=== PATIENT | female | born 1985 | race Caucasian/White ===

== ENCOUNTER → 2016-06-22 | Outpatient (REF) | payer MEDICARE, MEDICAID ==
[2016-06-28 14:08] LABS: Cannabidiol Negative (.)
== END | disposition home or self-care (01) ==
LOC: M LABDRAW1 11:35
PROVIDERS: ATTEND Psychiatry & Neurology Psychiatry
DX: F12.10 Cannabis abuse, uncomplicated (principal)

== ENCOUNTER 2016-07-03 15:30 | Outpatient (RCR) | payer MEDICARE, MEDICAID | END 2016-07-14 | LOC: M OUTALCOH 15:30 | PROVIDERS: ATTEND Psychiatry & Neurology Psychiatry | DX: F12.10 Cannabis abuse, uncomplicated (principal); F17.200 Nicotine dependence, unspecified, uncomplicated ==

== ENCOUNTER → 2017-02-25 | Outpatient (REF) | payer MEDICARE, MEDICAID | LOC: M LAB REF 11:48 | PROVIDERS: ATTEND Internal Medicine Endocrinology, Diabetes & Metabolism | DX: D34 Benign neoplasm of thyroid gland (principal); E04.2 Nontoxic multinodular goiter ==

== ENCOUNTER 2017-09-26 14:02 | Emergency (ER) | payer MEDICARE, MEDICAID ==
[2017-09-26 14:41] LABS: BASO % 0.3 % (0.0-1.0); EOS % 0.3 % (0.0-3.0); HEMOGLOBIN 13.1 g/dl (12.0-15.5); IMMATURE GRANULOCYTE % 0.3 % (0-3.0); LYMPH # 2.3 10^3/uL (1.5-4.5); MEAN CORPUSCULAR HEMOGLOBIN 30.5 pg (27.0-33.0); MEAN CORPUSCULAR HGB CONC 34.5 g/dl (32.0-36.5); MEAN CORPUSCULAR VOLUME 88.4 fl (80.0-96.0); MONO % 7.9 % (0.0-5.0); NEUTROPHILS # 8.6 10^3/uL (1.8-7.7); NEUTROPHILS % 72.2 % (36.0-66.0); PLATELET COUNT, AUTOMATED 278 10^3/uL (150-450); RED CELL DISTRIBUTION WIDTH 12.9 % (11.5-14.5)
[2017-09-26 14:47] LABS: KETONE, URINE AUTO RFX NEGATIVE (NEGATIVE); MUCUS, URINE RFX MODERATE (NEGATIVE); NITRITE, URINE AUTO RFX NEGATIVE (NEGATIVE); RBC, URINE AUTO RFX 4 /HPF (0-3); SPECIFIC GRAVITY UR AUTO RFX 1.028 (1.002-1.035); SQUAM EPITHELIAL CELL UR AURFX 2 /HPF (0-6)
[2017-09-26 14:48] LABS: LEUKOCYTE ESTERASE UR AUTO RFX 3+ (NEGATIVE); WBC, URINE AUTO RFX 45 /HPF (0-3)
[2017-09-26 15:06] LABS: HCG, SERUM QUANTITATIVE 43748 MIU/ML
== END 2017-09-26 16:11 | disposition home or self-care (01) ==
LOC: M ED 14:02
DX: O23.41 Unspecified infection of urinary tract in pregnancy, first trimester (principal); O99.331 Smoking (tobacco) complicating pregnancy, first trimester; F17.200 Nicotine dependence, unspecified, uncomplicated; Z3A.00 Weeks of gestation of pregnancy not specified
CPT/HCPCS: 76801

== ENCOUNTER → 2017-12-03 | Outpatient (REF) | payer MEDICARE, MEDICAID ==
[2017-12-03 18:22] LABS: CHLAMYDIA DNA AMPLIFICATION NEGATIVE (NEGATIVE); GC DNA AMPLIFICATION NEGATIVE (NEGATIVE)
[2017-12-03 18:23] LABS: HEMATOCRIT 36.6 % (36.0-47.0); HEMOGLOBIN 12.4 g/dl (12.0-15.5); MEAN CORPUSCULAR HEMOGLOBIN 30.8 pg (27.0-33.0); MEAN CORPUSCULAR HGB CONC 33.9 g/dl (32.0-36.5); MEAN CORPUSCULAR VOLUME 90.8 fl (80.0-96.0); PLATELET COUNT, AUTOMATED 261 10^3/uL (150-450); RED BLOOD COUNT 4.03 10^6/uL (4.00-5.40); RED CELL DISTRIBUTION WIDTH 13.2 % (11.5-14.5)
[2017-12-03 20:24] LABS: FREE T4 1.03 NG/DL (0.76-1.46)
[2017-12-06 10:27] LABS: HEPATITIS B SURFACE ANTIGEN NEGATIVE (NEGATIVE)
[2017-12-06 10:48] LABS: HEPATITIS C VIRUS ABY INDEX 0.1 INDEX (<0.8)
[2017-12-06 10:48] LABS: HEPATITIS B CORE ANTIBODY IGM NEGATIVE (NEGATIVE)
[2017-12-06 10:50] LABS: HIV 1&2 SCREEN CENTAUR NEGATIVE (NEGATIVE)
[2017-12-06 10:51] LABS: HEPATITIS A ANTIBODY IGM NEGATIVE (NEGATIVE)
== END ==
LOC: M LAB REF 16:25
DX: A60.04 Herpesviral vulvovaginitis (principal); E03.8 Other specified hypothyroidism
CPT/HCPCS: 84443

== ENCOUNTER → 2017-12-20 | Outpatient (CLI) | payer MEDICARE, MEDICAID | LOC: M RAD 13:01 | DX: Z34.82 Encounter for supervision of other normal pregnancy, second trimester (principal) | CPT/HCPCS: 76811 ==

== ENCOUNTER → 2017-12-23 | Outpatient (CLI) | payer MEDICARE, MEDICAID ==
[2017-12-23 14:03] LABS: BASO % 0.2 % (0.0-1.0); EOS # 0.1 10^3/uL (0.0-0.50); EOS % 0.5 % (0.0-3.0); HEMATOCRIT 36.1 % (36.0-47.0); HEMOGLOBIN 12.3 g/dl (12.0-15.5); IMMATURE GRANULOCYTE % 0.5 % (0-3.0); LYMPH # 1.9 10^3/uL (1.5-4.5); LYMPH % 14.7 % (24.0-44.0); MEAN CORPUSCULAR HEMOGLOBIN 31.9 pg (27.0-33.0); MEAN CORPUSCULAR HGB CONC 34.1 g/dl (32.0-36.5); MEAN CORPUSCULAR VOLUME 93.8 fl (80.0-96.0); MONO # 0.8 10^3/uL (0.0-0.8); MONO % 6.2 % (0.0-5.0); NEUTROPHILS % 77.9 % (36.0-66.0); PLATELET COUNT, AUTOMATED 282 10^3/uL (150-450); RED BLOOD COUNT 3.85 10^6/uL (4.00-5.40); RED CELL DISTRIBUTION WIDTH 14.1 % (11.5-14.5); WHITE BLOOD COUNT 12.8 10^3/uL (4.0-10.0)
[2017-12-24 10:37] LABS: RUBELLA IgG QUALITATIVE IMMUNE (IMMUNE)
[2017-12-24 10:46] LABS: HBsAg Prenatal NEGATIVE (NEGATIVE)
[2017-12-24 11:07] LABS: HIV 1&2 SCREEN CENTAUR NEGATIVE (NEGATIVE)
[2017-12-24 11:07] LABS: HEPATITIS C VIRUS ABY INDEX 0.1 INDEX (<0.8)
[2017-12-24 12:42] LABS: FREE T4 1.02 NG/DL (0.76-1.46)
[2017-12-24 16:20] LABS: SSA SJOGRENS A <0.2 AI (0.0-0.9); SSB SJOGRENS B <0.2 AI (0.0-0.9)
== END ==
LOC: M SMT 09:41
DX: Z36.89 Encounter for other specified antenatal screening (principal); Z3A.00 Weeks of gestation of pregnancy not specified
CPT/HCPCS: 84443

== ENCOUNTER → 2017-12-28 | Outpatient (CLI) | payer MEDICARE, MEDICAID | LOC: M SMT 11:29 | DX: Z36.89 Encounter for other specified antenatal screening (principal) | CPT/HCPCS: 36415 ==

== ENCOUNTER → 2018-02-25 | Outpatient (CLI) | payer MEDICARE ==
[2018-02-25 10:44] LABS: GLUCOSE, FASTING 84 MG/DL (LESS THAN 95)
[2018-02-25 10:46] LABS: 1 HR GLUCOSE 197 MG/DL (LESS THAN 180)
[2018-02-25 11:27] LABS: 2 HR GLUCOSE 186 MG/DL (LESS THAN 155)
[2018-02-25 12:25] LABS: 3 HR GLUCOSE 138 MG/DL (LESS THAN 140)
== END ==
LOC: M LAB 08:00
DX: Z34.82 Encounter for supervision of other normal pregnancy, second trimester (principal)
CPT/HCPCS: 82951

== ENCOUNTER → 2018-03-28 | Outpatient (CLI) | payer MEDICARE, MEDICAID | LOC: M RAD 11:52 | DX: O24.419 Gestational diabetes mellitus in pregnancy, unspecified control (principal); Z3A.31 31 weeks gestation of pregnancy | CPT/HCPCS: 76816 ==

== ENCOUNTER → 2018-04-01 | Outpatient (REF) | payer MEDICARE, MEDICAID | LOC: M LAB REF 16:45 | DX: E03.8 Other specified hypothyroidism (principal) | CPT/HCPCS: 84443 ==

== ENCOUNTER 2018-04-11 11:09 | Outpatient (RCR) | payer MEDICARE, MEDICAID | END 2018-04-13 | LOC: M ST 11:09 | DX: R13.11 Dysphagia, oral phase (principal) | CPT/HCPCS: 92610 ==

== ENCOUNTER → 2018-04-19 | Outpatient (REF) | payer MEDICARE, MEDICAID | LOC: M LAB REF 13:15 | DX: Z34.83 Encounter for supervision of other normal pregnancy, third trimester (principal); Z36.89 Encounter for other specified antenatal screening | CPT/HCPCS: 87081 ==

== ENCOUNTER 2018-04-27 06:05 | Inpatient (IN) | payer MEDICARE, MEDICAID ==
[2018-04-27 06:30] LABS: BEDSIDE GLUCOSE 109 MG/DL (70-105)
[2018-04-27] MEDS ORDERED: miSOPROStol 50 MCG 1/2 TAB (S0191) PO (07:00)
[2018-04-27 07:03] LABS: HEMOGLOBIN 9.5 g/dl (12.0-15.5); MEAN CORPUSCULAR HEMOGLOBIN 29.1 pg (27.0-33.0); MEAN CORPUSCULAR HGB CONC 32.8 g/dl (32.0-36.5); MEAN CORPUSCULAR VOLUME 88.7 fl (80.0-96.0); PLATELET COUNT, AUTOMATED 241 10^3/uL (150-450); RED BLOOD COUNT 3.27 10^6/uL (4.00-5.40); RED CELL DISTRIBUTION WIDTH 13.1 % (11.5-14.5); WHITE BLOOD COUNT 13.3 10^3/uL (4.0-10.0)
[2018-04-27] MEDS ORDERED: OXYTOCIN 30 UNITS IN 0.9% NaCl 500ML IV BAG (J2590) As Ordered (09:16)
[2018-04-27 09:20] LABS: AMPHETAMINES URINE REFLEX NEGATIVE (NEGATIVE); BARBITURATES URINE REFLEX NEGATIVE (NEGATIVE); BENZODIAZEPINES URINE REFLEX NEGATIVE (NEGATIVE); CANNABINOIDS URINE REFLEX NEGATIVE (NEGATIVE); COCAINE METABOLITE URINE REFLE NEGATIVE (NEGATIVE); METHADONE URINE REFLEX NEGATIVE (NEGATIVE); OPIATES URINE REFLEX NEGATIVE (NEGATIVE); PHENCYCLIDINE URINE REFLEX NEGATIVE (NEGATIVE)
[2018-04-27] MEDS: LR 1,000 ML IV (10:07)
[2018-04-27] MEDS: OXYTOCIN DRIP 30 UNITS in APPROPRIATE DILUENT 1 EA IV (10:07)
[2018-04-27] MEDS ORDERED: INSULIN HUMAN REGULAR 100 UNITS in NS 99 ML IV (16:46)
[2018-04-27] MEDS ORDERED: D5W/0.9% SODIUM CHLORIDE 1,000 ML IV (16:46)
[2018-04-27] MEDS ORDERED: NS 1,000 ML IV (16:46)
[2018-04-27] MEDS ORDERED: INSULIN IV RATE CHANGE DOCUMENTATION ML/HR XX (17:00)
[2018-04-27 17:05] LABS: BEDSIDE GLUCOSE 79 MG/DL (70-105)
[2018-04-27 19:06] LABS: BEDSIDE GLUCOSE 88 MG/DL (70-105)
[2018-04-27] MEDS ORDERED: FENTANYL 2MCG/ML ROPIVACAINE 0.2% IN 0.9% NACL 200ML IVBAG As Ordered (19:10)
[2018-04-27] MEDS ORDERED: NALOXONE INJ 0.4 MG/1 ML VIAL (J2310) IV (20:00)
[2018-04-27] MEDS ORDERED: ONDANSETRON 4MG/2ML VIAL (J2405) IV (20:00)
[2018-04-27] MEDS ORDERED: EPIDURAL/PCA KEYS XX (20:00)
[2018-04-27] MEDS ORDERED: REFRIGERATOR IV KEYS XX (20:00)
[2018-04-27] MEDS ORDERED: diphenhydrAMINE INJ 50MG/ML VIAL (J1200) IV (20:00)
[2018-04-27] MEDS ORDERED: LACTATED RINGER'S 1000 ML IV (20:00)
[2018-04-27] MEDS ORDERED: FENTANYL/ROPIVACAINE/NACL BAG 200 ML EPIDURAL (20:00)
[2018-04-27] MEDS ORDERED: ePHEDrine SULFATE 25 MG/5 ML(5MG/ML) SYRINGE IV (20:00)
[2018-04-27] MEDS ORDERED: EPIDURAL COMMENT XX (20:00)
[2018-04-27 22:25] LABS: CORD GAS ABE A -8.9; CORD GAS O2 SAT A 22.6 %; CORD GAS PCO2 A 62.7 mmHg; CORD GAS PH A 7.143 UNITS; CORD GAS SBC A 15.8 MEQ/L; CORD GAS TCO2 A 22.9 MEQ/L
[2018-04-27 22:27] LABS: CORD GAS ABE V -5.2; CORD GAS HCO3 V 23.2 MEQ/L; CORD GAS O2 SAT V 37.2 %; CORD GAS PCO2 V 56.7 mmHg; CORD GAS PO2 V 18.5 mmHg; CORD GAS SBC V 18.9 MEQ/L
[2018-04-27] MEDS ORDERED: ANUSOL HC CREAM 30GM TOP (22:30)
[2018-04-27] MEDS ORDERED: MEASLES,MUMPS,RUBELLA VACCINE INJ (MMR-II) (90707) SC (22:30)
[2018-04-27] MEDS ORDERED: DIBUCAINE 1% OINTMENT 30GM TOP (22:30)
[2018-04-27] MEDS ORDERED: OXYTOCIN DRIP 30 UNITS in APPROPRIATE DILUENT 1 EA IV (22:30)
[2018-04-27] MEDS ORDERED: METHYLERGONOVINE MALEATE 0.2 MG TAB PO (22:30)
[2018-04-27] MEDS ORDERED: DOCUSATE SODIUM 100 MG CAP PO (22:30)
[2018-04-27] MEDS ORDERED: MOM 30ML SUSPENSION UDC PO (22:30)
[2018-04-27 23:00] LABS: BEDSIDE GLUCOSE 83 MG/DL (70-105)
[2018-04-28 00:17] LABS: BEDSIDE GLUCOSE 105 MG/DL (70-105)
[2018-04-28] MEDS: LR 1,000 ML IV ×2 (00:45→02:00)
[2018-04-28] MEDS: PROMETHAZINE INJ 25 MG/ML VIAL (J2550) IV (01:47)
[2018-04-28] MEDS: ACETAMINOPHEN 500 MG TAB PO ×3 (02:48→18:08)
[2018-04-28] MEDS: IBUPROFEN 800 MG TAB PO ×2 (02:48→16:49)
[2018-04-28] MEDS: PRENATAL VITAMINS CHEWABLE TABLET PO (09:35)
[2018-04-28 09:53] LABS: FETAL SCREEN PROF. 1 1
[2018-04-28] MEDS: RHOGAM 300 MCG (1500 IU) INJ (J2790) IM (10:47)
[2018-04-29] MEDS: IBUPROFEN 800 MG TAB PO ×2 (04:10→14:20)
[2018-04-29] MEDS: PRENATAL VITAMINS CHEWABLE TABLET PO (07:36)
== END 2018-04-29 16:30 | disposition home or self-care (01) | DRG 807 ==
LOC: M LDI 06:05 → M OBS 23:48
PROVIDERS: Advanced Practice Midwife
PROC: 10E0XZZ Delivery of Products of Conception, External Approach (ICD-10-PCS; principal; 2018-04-27)
PROC: 3E0P7GC Introduction of Other Therapeutic Substance into Female Reproductive, Via Natural or Artificial Opening (ICD-10-PCS; 2018-04-27)
DX: O24.425 Gestational diabetes mellitus in childbirth, controlled by oral hypoglycemic drugs (principal); Z37.0 Single live birth; E03.9 Hypothyroidism, unspecified; Z3A.37 37 weeks gestation of pregnancy; O99.284 Endocrine, nutritional and metabolic diseases complicating childbirth; L65.9 Nonscarring hair loss, unspecified; O99.72 Diseases of the skin and subcutaneous tissue complicating childbirth

== ENCOUNTER → 2018-06-10 | Outpatient (CLI) | payer MEDICARE, MEDICAID ==
[~2018-06-10] MED LIST: COLA100C5 PO; E-Z-PAQUE 96% w/w SUSP 176GM BTL As Ordered ONE; IBUP-1114 PO; LEVO25TA5 PO; MACR100C43 PO; MAPA500T2 PO; METF500T13 PO; PRENTAB9 PO; VALT500T PO; VARIBAR NECTAR 40% w/v 240ML SUSP BTL As Ordered ONE; VARIBAR PUDDING 40% w/v 230ML TUBE As Ordered ONE
--- NOTE | 2018-06-10 13:55 | REP ---
Clinical: Dysphasia. Technique: Real time fluoroscopic evaluation in conjunction with speech pathology. Findings: Examination demonstrates normal deglutition and peristalsis through the oropharynx and visualized upper esophagus. No evidence for aspiration or laryngeal penetration. Surrounding soft tissues and osseous structures are normal. Total fluoroscopic time 1.6 minutes . Impression: Normal modified barium swallow examination. Electronically Signed by Jesus Herring MD 06/10/2018 01:47 P
--- NOTE | 2018-06-10 14:08 | NUR ---
Pt seen this date for Modified Barium Swallow Study d/t c/o difficulty swallowing liquids and solids, inconsistently. Pt also reported intermittent globus sensation. Pt provided with thin liquids at cup side sip, cup side consecutive swallow and with consecutive straw drink. Flash/trace penetration was observed on the first trial. All subsequent thin liquid trials were adequate. Puree, mixed soft solid and cookie swallows were adequate. Recommend: Regular solids/thin liquids. D/T c/o intermittent globus sensation, MD please consider intervention for GERD. Pt educated on results of study and some GERD precautions. Addendum: 06/10/18 at 1408 by DANNY YOO CHAKA Amended: Links added.
== END ==
LOC: M RAD 13:13
PROVIDERS: ATTEND Family Medicine Addiction Medicine
DX: R13.11 Dysphagia, oral phase (principal)
CPT/HCPCS: 74230; 92611; G8996; G8997; G8998

== ENCOUNTER → 2018-07-08 | Outpatient (CLI) | payer MEDICARE, MEDICAID ==
[~2018-07-08] MED LIST changes: -E-Z-PAQUE 96% w/w SUSP 176GM BTL As Ordered ONE; -VARIBAR NECTAR 40% w/v 240ML SUSP BTL As Ordered ONE; -VARIBAR PUDDING 40% w/v 230ML TUBE As Ordered ONE
== END ==
LOC: M LAB 07:59
PROVIDERS: ATTEND Obstetrics & Gynecology
DX: Z86.32 Personal history of gestational diabetes (principal)

== ENCOUNTER → 2018-07-14 | Outpatient (CLI) | payer MEDICARE, MEDICAID ==
--- NOTE | 2018-07-14 09:40 | REP ---
Clinical: Pain . Technique: AP, lateral, bilateral oblique, and coned-down views. Findings: Alignment and lordosis is maintained. The vertebral bodies including transverse process and spinous processes are intact and normal. There is no evidence for acute fracture / compression injury or subluxation. No evidence for spondylolysis or spondylolisthesis. No significant degenerative change is noted. Impression: Normal lumbosacral spine radiograph series. If the patient remains symptomatic consider MRI for further investigation. Electronically Signed by Jesus Herring MD 07/14/2018 09:32 A
== END ==
LOC: M WUC 09:16
PROVIDERS: ATTEND Physician Assistant
DX: M54.5 Low back pain (principal)

== ENCOUNTER → 2018-07-22 | Outpatient (REF) | payer MEDICARE, MEDICAID | LOC: M LAB REF 16:13 | PROVIDERS: ATTEND Family Medicine Addiction Medicine | DX: E03.8 Other specified hypothyroidism (principal) ==

== ENCOUNTER → 2018-09-06 | Outpatient (REF) | payer MEDICARE, MEDICAID ==
[2018-09-08 14:21] LABS: HPV HYBRID CAPTURE II Negative (Negative)
== END ==
LOC: M LAB REF 14:38
PROVIDERS: ATTEND Obstetrics & Gynecology
DX: Z12.4 Encounter for screening for malignant neoplasm of cervix (principal)
CPT/HCPCS: 87624; G0123

== ENCOUNTER → 2018-10-07 | Outpatient (REF) | payer MEDICARE, MEDICAID | LOC: M LAB REF 12:38 | PROVIDERS: ATTEND Family Medicine Addiction Medicine | DX: E03.8 Other specified hypothyroidism (principal) ==

== ENCOUNTER → 2018-12-09 | Outpatient (REF) | payer MEDICARE, MEDICAID | LOC: M LAB REF 12:55 | PROVIDERS: ATTEND Nurse Practitioner Family | DX: E03.8 Other specified hypothyroidism (principal) | CPT/HCPCS: 84443; G0463 ==

== ENCOUNTER → 2019-01-05 | Outpatient (CLI) | payer MEDICARE, MEDICAID ==
--- NOTE | 2019-01-06 14:30 | REP ---
LUMBOSACRAL SPINE WITH BENDING VIEWS: Seven views of the lumbosacral spine are performed including lateral flexion and extension views. There is no compression fracture or malalignment. There is normal lumbar lordosis. There is no spondylolysis or spondylolisthesis. The disc spaces are well preserved. The posterior elements are intact. IMPRESSION: Negative lumbosacral spine series. Unreviewed
== END ==
LOC: M RAD 18:14
PROVIDERS: ATTEND Nurse Practitioner Family
DX: Z53.9 Procedure and treatment not carried out, unspecified reason (principal); M54.5 Low back pain

== ENCOUNTER → 2019-01-06 | Outpatient (CLI) | payer MEDICARE, MEDICAID ==
--- NOTE | 2019-01-06 14:12 | REP ---
REASON: Low back pain. COMPARISON: 07/14/2018 FINDINGS: Five views of the lumbosacral spine show no acute fracture, dislocation or subluxation. The intervertebral disc spaces are symmetric and well maintained. There is no spondylolisthesis. The pedicles are intact bilaterally and there is no destructive osseous lesions. There is no change from the prior exam. There is a T-shaped radiodensity seen in the pelvis consistent with an IUD. If the patient is experiencing persistent back pain, consider followup with MRI to assess for discopathy or marrow edema if clinically relevant. IMPRESSION: Unremarkable lumbosacral spine series. ADDENDUM: Seven views were obtained rather than 5. The additional views include lateral flexion and extension bending views. Those views show no evidence of instability. edited: 01/06/2019 1653 ndp Unreviewed
== END ==
LOC: M RAD 12:36
PROVIDERS: ATTEND Nurse Practitioner Family
DX: M54.5 Low back pain (principal)

== ENCOUNTER → 2019-05-05 | Outpatient (REF) | payer MEDICARE, MEDICAID ==
[2019-05-05 17:26] LABS: ALBUMIN 3.5 GM/DL (3.2-5.2); ALT/SGPT 16 U/L (12-78); BILIRUBIN,TOTAL 0.3 MG/DL (0.2-1.0); BLOOD UREA NITROGEN 11 MG/DL (7-18); CALCIUM LEVEL 8.9 MG/DL (8.5-10.1); CARBON DIOXIDE LEVEL 26 MEQ/L (21-32); CHLORIDE LEVEL 108 MEQ/L (98-107); CHOLESTEROL LEVEL 178 MG/DL (<200); CHOLESTEROL RISK RATIO 3.236 (<5); CREATININE FOR GFR 0.81 MG/DL (0.55-1.30); FREE T4 0.96 NG/DL (0.76-1.46); GLOMERULAR FILTRATION RATE > 60.0 (>60); GLUCOSE, FASTING 107 MG/DL (70-100); HDL CHOLESTEROL 55 MG/DL (>40); LDL CHOLESTEROL 105 MG/DL (<100); NON-HDL-C 123 MG/DL; POTASSIUM SERUM 4.1 MEQ/L (3.5-5.1); SODIUM LEVEL 140 MEQ/L (136-145); TOTAL PROTEIN 7.6 GM/DL (6.4-8.2); TRIGLYCERIDES LEVEL 90 MG/DL (<150)
[2019-05-05 17:29] LABS: TOTAL 25(OH) VITAMIN D 17.1 NG/ML (30.0-100.0)
[2019-05-05 17:32] LABS: HEMOGLOBIN A1c 6.1 %
[2019-05-05 17:33] LABS: BASO # 0.1 10^3/uL (0.0-0.2); BASO % 0.7 % (0.0-1.0); EOS # 0.2 10^3/uL (0.0-0.5); EOS % 1.8 % (0.0-3.0); HEMATOCRIT 40.6 % (36.0-47.0); HEMOGLOBIN 12.7 g/dl (12.0-15.5); LYMPH % 23.2 % (24.0-44.0); MEAN CORPUSCULAR HEMOGLOBIN 28.5 pg (27.0-33.0); MEAN CORPUSCULAR HGB CONC 31.3 g/dl (32.0-36.5); MEAN CORPUSCULAR VOLUME 91.2 fl (80.0-96.0); MONO % 11.4 % (0.0-5.0); NEUTROPHILS # 5.3 10^3/uL (1.5-8.5); NEUTROPHILS % 62.7 % (36.0-66.0); PLATELET COUNT, AUTOMATED 319 10^3/uL (150-450); RED BLOOD COUNT 4.45 10^6/uL (4.00-5.40); WHITE BLOOD COUNT 8.4 10^3/uL (4.0-10.0)
== END ==
LOC: M LAB REF 16:44
PROVIDERS: ATTEND Nurse Practitioner Family
DX: Z00.01 Encounter for general adult medical examination with abnormal findings (principal); Z79.899 Other long term (current) drug therapy

== ENCOUNTER → 2019-06-12 | Outpatient (CLI) | payer MEDICARE, MEDICAID | LOC: M LAB 13:09 | PROVIDERS: ATTEND Internal Medicine Cardiovascular Disease | DX: R00.1 Bradycardia, unspecified (principal); F32.89 Other specified depressive episodes | CPT/HCPCS: 36415; 84443; 90832; G0463 ==

== ENCOUNTER → 2019-08-05 | Outpatient (CLI) | payer MEDICARE, MEDICAID ==
[2019-08-05 18:54] LABS: BASO % 0.3 % (0.0-1.0); EOS # 0.1 10^3/uL (0.0-0.5); EOS % 1.2 % (0.0-3.0); HEMATOCRIT 38.4 % (36.0-47.0); HEMOGLOBIN 12.5 g/dl (12.0-15.5); LYMPH # 2.8 10^3/uL (1.5-5.0); LYMPH % 29.6 % (24.0-44.0); MEAN CORPUSCULAR HEMOGLOBIN 28.9 pg (27.0-33.0); MEAN CORPUSCULAR HGB CONC 32.6 g/dl (32.0-36.5); MEAN CORPUSCULAR VOLUME 88.9 fl (80.0-96.0); MONO # 0.9 10^3/uL (0.0-0.8); NEUTROPHILS # 5.7 10^3/uL (1.5-8.5); NEUTROPHILS % 59.6 % (36.0-66.0); PLATELET COUNT, AUTOMATED 291 10^3/uL (150-450); RED BLOOD COUNT 4.32 10^6/uL (4.00-5.40); WHITE BLOOD COUNT 9.5 10^3/uL (4.0-10.0)
[2019-08-05 19:15] LABS: HEMOGLOBIN A1c 6.5 %
[2019-08-05 19:33] LABS: ALBUMIN 3.7 GM/DL (3.2-5.2); ALT/SGPT 16 U/L (12-78); BILIRUBIN,TOTAL 0.2 MG/DL (0.2-1.0); BLOOD UREA NITROGEN 18 MG/DL (7-18); CALCIUM LEVEL 8.9 MG/DL (8.5-10.1); CARBON DIOXIDE LEVEL 28 MEQ/L (21-32); CHLORIDE LEVEL 106 MEQ/L (98-107); CHOLESTEROL LEVEL 170 MG/DL (<200); CHOLESTEROL RISK RATIO 4.047 (<5); CREATININE FOR GFR 0.97 MG/DL (0.55-1.30); FREE T4 0.99 NG/DL (0.76-1.46); GLOMERULAR FILTRATION RATE > 60.0 (>60); GLUCOSE, FASTING 113 MG/DL (70-100); HDL CHOLESTEROL 42 MG/DL (>40); LDL CHOLESTEROL 98 MG/DL (<100); NON-HDL-C 128 MG/DL; POTASSIUM SERUM 4.1 MEQ/L (3.5-5.1); SODIUM LEVEL 138 MEQ/L (136-145); TOTAL PROTEIN 7.4 GM/DL (6.4-8.2); TRIGLYCERIDES LEVEL 152 MG/DL (<150)
[2019-08-07 10:06] LABS: TOTAL 25(OH) VITAMIN D 21.8 NG/ML (30.0-100.0)
== END ==
LOC: M LAB 18:16
PROVIDERS: ATTEND Nurse Practitioner Family
DX: R00.1 Bradycardia, unspecified (principal); E55.9 Vitamin D deficiency, unspecified; R07.9 Chest pain, unspecified; R73.03 Prediabetes; E03.8 Other specified hypothyroidism

== ENCOUNTER → 2019-09-19 | Outpatient (REF) | payer MEDICARE, MEDICAID ==
[2019-09-19 12:50] LABS: FREE T4 1.11 NG/DL (0.76-1.46); THYROID STIMULATING HORMONE 3.39 uIU/ML (0.358-3.740); TOTAL 25(OH) VITAMIN D 27.8 NG/ML (30.0-100.0)
== END ==
LOC: M LAB REF 12:16
PROVIDERS: ATTEND Physician Assistant
DX: E55.9 Vitamin D deficiency, unspecified (principal); E03.8 Other specified hypothyroidism; Z79.899 Other long term (current) drug therapy

== ENCOUNTER → 2019-11-28 | Outpatient (REF) | payer MEDICARE, MEDICAID ==
[2019-11-28 13:39] LABS: BASO % 0.4 % (0.0-1.0); EOS # 0.1 10^3/uL (0.0-0.5); EOS % 0.7 % (0.0-3.0); HEMATOCRIT 42.8 % (36.0-47.0); HEMOGLOBIN 13.9 g/dl (12.0-15.5); LYMPH # 2.5 10^3/uL (1.5-5.0); LYMPH % 25.3 % (24.0-44.0); MEAN CORPUSCULAR HEMOGLOBIN 29.1 pg (27.0-33.0); MEAN CORPUSCULAR HGB CONC 32.5 g/dl (32.0-36.5); MEAN CORPUSCULAR VOLUME 89.7 fl (80.0-96.0); MONO # 0.8 10^3/uL (0.0-0.8); MONO % 7.8 % (0.0-5.0); NEUTROPHILS # 6.5 10^3/uL (1.5-8.5); NEUTROPHILS % 65.5 % (36.0-66.0); PLATELET COUNT, AUTOMATED 313 10^3/uL (150-450); RED BLOOD COUNT 4.77 10^6/uL (4.00-5.40); WHITE BLOOD COUNT 9.9 10^3/uL (4.0-10.0)
[2019-11-28 13:53] LABS: ALT/SGPT 19 U/L (12-78); BILIRUBIN,TOTAL 0.4 MG/DL (0.2-1.0); BLOOD UREA NITROGEN 15 MG/DL (7-18); CALCIUM LEVEL 8.9 MG/DL (8.5-10.1); CARBON DIOXIDE LEVEL 26 MEQ/L (21-32); CHLORIDE LEVEL 105 MEQ/L (98-107); CHOLESTEROL LEVEL 205 MG/DL (<200); CHOLESTEROL RISK RATIO 4.456 (<5); CREATININE FOR GFR 0.74 MG/DL (0.55-1.30); FREE T4 1.13 NG/DL (0.76-1.46); GLOMERULAR FILTRATION RATE > 60.0 (>60); GLUCOSE, FASTING 96 MG/DL (70-100); HDL CHOLESTEROL 46 MG/DL (>40); LDL CHOLESTEROL 125 MG/DL (<100); NON-HDL-C 159 MG/DL; POTASSIUM SERUM 4.2 MEQ/L (3.5-5.1); SODIUM LEVEL 137 MEQ/L (136-145); TOTAL 25(OH) VITAMIN D 15.9 NG/ML (30.0-100.0); TOTAL PROTEIN 8.4 GM/DL (6.4-8.2); TRIGLYCERIDES LEVEL 169 MG/DL (<150)
[2019-11-28 14:45] LABS: HEMOGLOBIN A1c 6.2 %
== END ==
LOC: M LAB REF 12:01
PROVIDERS: ATTEND Nurse Practitioner Family
DX: E03.9 Hypothyroidism, unspecified (principal); E55.9 Vitamin D deficiency, unspecified; E11.9 Type 2 diabetes mellitus without complications; M54.5 Low back pain

== ENCOUNTER → 2020-02-14 | Outpatient (REF) | payer OTHER, MEDICAID, MEDICARE ==
[~2020-02-14] MED LIST changes: +CELE1CAP7 PO; +CEPH500C PO; +DOK1CAP7 PO; +DULO1CAP6 PO; +EUTH137T PO; +NON-325T5 PO; +NORT10CA2 PO; +cholecalciferol PO
[2020-02-14 15:11] LABS: THYROID STIMULATING HORMONE 4.05 uIU/ML (0.358-3.740)
== END ==
LOC: M LAB REF 09:10
PROVIDERS: ATTEND Nurse Practitioner Family
DX: E03.9 Hypothyroidism, unspecified (principal)

== ENCOUNTER 2020-04-12 11:34 | Emergency (ER) | payer MEDICARE, MEDICAID ==
[~2020-04-12] VITALS: Ht 162.6 cm; Wt 103.1 kg
[~2020-04-12 11:34] MED LIST changes: -CELE1CAP7 PO; -CEPH500C PO; -DOK1CAP7 PO; -DULO1CAP6 PO; -EUTH137T PO; -NON-325T5 PO; -NORT10CA2 PO; -cholecalciferol PO
[2020-04-12 11:35] VITALS: BP 109/73
[2020-04-12] MEDS ORDERED: DOK1CAP7 PO (15:31)
[2020-04-12] MEDS ORDERED: NON-325T5 PO (15:31)
[2020-04-12] MEDS ORDERED: NORT10CA2 PO (15:31)
[2020-04-12] MEDS ORDERED: DULO1CAP6 PO (15:31)
[2020-04-12] MEDS ORDERED: CEPH500C PO (15:31)
[2020-04-12] MEDS ORDERED: cholecalciferol PO (15:31)
[2020-04-12] MEDS ORDERED: EUTH137T PO (15:31)
[2020-04-12] MEDS ORDERED: CELE1CAP7 PO ×2 (15:31)
== END 2020-04-12 12:25 | disposition left against medical advice (07) ==
LOC: M ED 11:34
DX: Z53.21 Procedure and treatment not carried out due to patient leaving prior to being seen by health care provider (principal)

== ENCOUNTER 2020-04-12 15:17 | Emergency (ER) | payer MEDICARE, MEDICAID ==
[~2020-04-12] VITALS: Ht 162.6 cm; Wt 103.6 kg
[2020-04-12] MEDS ORDERED: cholecalciferol PO (15:31)
[2020-04-12] MEDS ORDERED: DULO1CAP6 PO (15:31)
[2020-04-12] MEDS ORDERED: EUTH137T PO (15:31)
[2020-04-12] MEDS ORDERED: NON-325T5 PO (15:31)
[2020-04-12] MEDS ORDERED: CELE1CAP7 PO ×2 (15:31)
[2020-04-12] MEDS ORDERED: CEPH500C PO (15:31)
[2020-04-12] MEDS ORDERED: NORT10CA2 PO (15:31)
[2020-04-12] MEDS ORDERED: DOK1CAP7 PO (15:31)
[2020-04-12] MEDS ORDERED: LIDOCAINE 2% MDV 20ML VIAL SC ONE (16:00)
[2020-04-12 17:36] VITALS: BP 129/64
== END 2020-04-12 17:38 | disposition home or self-care (01) ==
LOC: M ED 15:17 → EEVIPCON 15:17 → M ED 17:38
DX: L02.511 Cutaneous abscess of right hand (principal); B00.89 Other herpesviral infection; F41.9 Anxiety disorder, unspecified; E03.9 Hypothyroidism, unspecified; Z79.899 Other long term (current) drug therapy

== ENCOUNTER → 2020-05-01 | Outpatient (REF) | payer MEDICARE, MEDICAID ==
[~2020-05-01] MED LIST changes: +CELE1CAP7 PO; +CEPH500C PO; +DOK1CAP7 PO; +DULO1CAP6 PO; +EUTH137T PO; +NON-325T5 PO; +NORT10CA2 PO; +cholecalciferol PO
[2020-05-01 13:16] LABS: BASO % 0.5 % (0.0-1.0); EOS # 0.1 10^3/uL (0.0-0.5); EOS % 1.6 % (0.0-3.0); HEMATOCRIT 38.7 % (36.0-47.0); HEMOGLOBIN 12.3 g/dl (12.0-15.5); LYMPH # 2.2 10^3/uL (1.5-5.0); LYMPH % 28.3 % (24.0-44.0); MEAN CORPUSCULAR HGB CONC 31.8 g/dl (32.0-36.5); MEAN CORPUSCULAR VOLUME 91.3 fl (80.0-96.0); MONO # 0.7 10^3/uL (0.0-0.8); MONO % 9.5 % (0.0-5.0); NEUTROPHILS # 4.6 10^3/uL (1.5-8.5); NEUTROPHILS % 59.8 % (36.0-66.0); PLATELET COUNT, AUTOMATED 316 10^3/uL (150-450); RED BLOOD COUNT 4.24 10^6/uL (4.00-5.40); WHITE BLOOD COUNT 7.6 10^3/uL (4.0-10.0)
[2020-05-01 13:42] LABS: ALBUMIN 3.7 GM/DL (3.2-5.2); ALT/SGPT 14 U/L (12-78); BILIRUBIN,TOTAL 0.4 MG/DL (0.2-1.0); BLOOD UREA NITROGEN 15 MG/DL (7-18); CALCIUM LEVEL 8.8 MG/DL (8.5-10.1); CARBON DIOXIDE LEVEL 26 MEQ/L (21-32); CHLORIDE LEVEL 107 MEQ/L (98-107); CHOLESTEROL LEVEL 183 MG/DL (<200); CHOLESTEROL RISK RATIO 3.519 (<5); CREATININE FOR GFR 0.82 MG/DL (0.55-1.30); FREE T4 1.11 NG/DL (0.76-1.46); GLOMERULAR FILTRATION RATE > 60.0 (>60); GLUCOSE, FASTING 120 MG/DL (70-100); HDL CHOLESTEROL 52 MG/DL (>40); LDL CHOLESTEROL 110 MG/DL (<100); NON-HDL-C 131 MG/DL; POTASSIUM SERUM 4.1 MEQ/L (3.5-5.1); SODIUM LEVEL 139 MEQ/L (136-145); TOTAL 25(OH) VITAMIN D 20.5 NG/ML (30.0-100.0); TOTAL PROTEIN 7.8 GM/DL (6.4-8.2); TRIGLYCERIDES LEVEL 103 MG/DL (<150)
[2020-05-01 14:41] LABS: HEMOGLOBIN A1c 5.9 %
== END ==
LOC: M LAB REF 12:25
PROVIDERS: ATTEND Nurse Practitioner Family
DX: G43.909 Migraine, unspecified, not intractable, without status migrainosus (principal); K59.00 Constipation, unspecified; Z13.9 Encounter for screening, unspecified; E03.9 Hypothyroidism, unspecified; E55.9 Vitamin D deficiency, unspecified; E11.9 Type 2 diabetes mellitus without complications; Z79.899 Other long term (current) drug therapy

== ENCOUNTER → 2020-06-17 | Outpatient (REF) | payer MEDICARE, MEDICAID ==
[~2020-06-17] MED LIST changes: +ACET-838 PO; -NON-325T5 PO
== END ==
LOC: M LAB REF 17:17
PROVIDERS: ATTEND Physician Assistant
DX: Z01.419 Encounter for gynecological examination (general) (routine) without abnormal findings (principal); R07.0 Pain in throat
CPT/HCPCS: 87070; 87624; G0123

== ENCOUNTER → 2020-06-17 | Outpatient (REF) | payer MEDICARE, MEDICAID | LOC: M LAB REF 17:10 | PROVIDERS: ATTEND Physician Assistant | DX: Z01.419 Encounter for gynecological examination (general) (routine) without abnormal findings (principal) ==

== ENCOUNTER → 2020-08-19 | Outpatient (CLI) | payer MEDICARE, MEDICAID ==
[2020-08-19 12:14] LABS: C REACTIVE PROTEIN QUANTITATIV 0.74 MG/DL (0.00-0.30); RHEUMATOID FACTOR QUANT < 10.0 IU/ML (<15.0)
== END ==
LOC: M LAB 10:59
PROVIDERS: ATTEND Physician Assistant
DX: M47.817 Spondylosis without myelopathy or radiculopathy, lumbosacral region (principal)

== ENCOUNTER → 2020-08-22 | Outpatient (REF) | payer MEDICARE, MEDICAID ==
[2020-08-22 12:16] LABS: BASO # 0.1 10^3/uL (0.0-0.2); BASO % 0.6 % (0.0-1.0); EOS # 0.1 10^3/uL (0.0-0.5); EOS % 0.7 % (0.0-3.0); HEMATOCRIT 41.3 % (36.0-47.0); HEMOGLOBIN 13.3 g/dl (12.0-15.5); LYMPH # 2.2 10^3/uL (1.5-5.0); LYMPH % 25.3 % (24.0-44.0); MEAN CORPUSCULAR HEMOGLOBIN 28.9 pg (27.0-33.0); MEAN CORPUSCULAR HGB CONC 32.2 g/dl (32.0-36.5); MEAN CORPUSCULAR VOLUME 89.8 fl (80.0-96.0); MONO # 0.8 10^3/uL (0.0-0.8); NEUTROPHILS # 5.5 10^3/uL (1.5-8.5); NEUTROPHILS % 64.1 % (36.0-66.0); PLATELET COUNT, AUTOMATED 335 10^3/uL (150-450); WHITE BLOOD COUNT 8.6 10^3/uL (4.0-10.0)
[2020-08-22 12:55] LABS: ALT/SGPT 18 U/L (12-78); BILIRUBIN,TOTAL 0.5 MG/DL (0.2-1.0); BLOOD UREA NITROGEN 17 MG/DL (7-18); CARBON DIOXIDE LEVEL 29 MEQ/L (21-32); CHLORIDE LEVEL 105 MEQ/L (98-107); CHOLESTEROL LEVEL 220 MG/DL (<200); CHOLESTEROL RISK RATIO 3.928 (<5); CREATININE FOR GFR 0.81 MG/DL (0.55-1.30); FREE T4 0.91 NG/DL (0.76-1.46); GLOMERULAR FILTRATION RATE > 60.0 (>60); GLUCOSE, FASTING 111 MG/DL (70-100); HDL CHOLESTEROL 56 MG/DL (>40); LDL CHOLESTEROL 143 MG/DL (<100); NON-HDL-C 164 MG/DL; POTASSIUM SERUM 4.4 MEQ/L (3.5-5.1); SODIUM LEVEL 138 MEQ/L (136-145); TOTAL 25(OH) VITAMIN D 20.2 NG/ML (30.0-100.0); TOTAL PROTEIN 7.8 GM/DL (6.4-8.2); TRIGLYCERIDES LEVEL 103 MG/DL (<150)
== END ==
LOC: M LAB REF 11:51
PROVIDERS: ATTEND Nurse Practitioner Family
DX: E78.5 Hyperlipidemia, unspecified (principal); E66.9 Obesity, unspecified

== ENCOUNTER → 2020-10-16 | Outpatient (REF) | payer MEDICARE, MEDICAID ==
[~2020-10-16] MED LIST changes: -ACET-838 PO; +ACET32TAB PO; +D3-5CAP; +EUTH125T; +FLUTISP; +GABA-282 PO
[2020-10-16 12:29] LABS: FREE T4 0.98 NG/DL (0.76-1.46); THYROID PEROXIDASE ANTIBODY > 1300.0 U/ML (<60.0)
== END ==
LOC: M LAB REF 11:21
PROVIDERS: ATTEND Nurse Practitioner Family
DX: E78.5 Hyperlipidemia, unspecified (principal); E66.9 Obesity, unspecified

== ENCOUNTER → 2021-01-10 | Outpatient (CLI) | payer MEDICARE, MEDICAID ==
[~2021-01-10] MED LIST changes: +FLUO10CA16 PO; +SYNT137T7 PO
== END ==
LOC: M LABSMTC 10:53
PROVIDERS: ATTEND Anesthesiology
DX: Z01.812 Encounter for preprocedural laboratory examination (principal); Z20.822 Contact with and (suspected) exposure to COVID-19

== ENCOUNTER → 2021-01-20 | Outpatient (CLI) | payer MEDICARE, MEDICAID ==
[~2021-01-20] MED LIST changes: +DOK1CAP4 PO; -DOK1CAP7 PO; -FLUO10CA16 PO; +FLUO10CA18 PO
[2021-01-20 11:16] LABS: CORTISOL AM 8.5 UG/DL (4.3-22.4); FREE T4 1.19 NG/DL (0.76-1.46); THYROID STIMULATING HORMONE 1.71 uIU/ML (0.358-3.740)
== END ==
LOC: M LAB 09:00
PROVIDERS: ATTEND Internal Medicine Endocrinology, Diabetes & Metabolism
DX: E06.3 Autoimmune thyroiditis (principal)

== ENCOUNTER → 2021-02-13 | Outpatient (REF) | payer MEDICARE, MEDICAID ==
[~2021-02-13] MED LIST changes: +FLUO10CA16 PO; -FLUO10CA18 PO
[2021-02-13 16:38] LABS: C REACTIVE PROTEIN QUANTITATIV 0.78 MG/DL (0.00-0.30)
[2021-02-13 16:50] LABS: TOTAL 25(OH) VITAMIN D 20.5 NG/ML (30.0-100.0)
== END ==
LOC: M SFHCRHEU 14:16
PROVIDERS: ATTEND Internal Medicine
DX: R79.82 Elevated C-reactive protein (CRP) (principal); R70.0 Elevated erythrocyte sedimentation rate; E55.9 Vitamin D deficiency, unspecified
CPT/HCPCS: 36415; 82306; 85652; 86140; G0463

== ENCOUNTER → 2021-02-20 | Outpatient (CLI) | payer MEDICARE, MEDICAID ==
[2021-02-20 11:16] LABS: FREE T4 0.95 NG/DL (0.76-1.46); THYROID STIMULATING HORMONE 5.19 uIU/ML (0.358-3.740)
== END ==
LOC: M LAB 08:52
PROVIDERS: ATTEND Nurse Practitioner Family
DX: E06.3 Autoimmune thyroiditis (principal)

== ENCOUNTER → 2021-02-24 | Outpatient (CLI) | payer MEDICARE, MEDICAID ==
--- NOTE | 2021-02-24 09:13 | REP ---
INDICATION: DORSALGIA, UNSPECIFIED. COMPARISON: None. TECHNIQUE: Single AP view of the pelvis FINDINGS: Osseous structures are intact and essentially age-appropriate. IUD identified in central position within the pelvis. 3 mm phlebolith in the left hemipelvis identified. Soft tissue structures are normal. IMPRESSION: Essentially normal age-appropriate pelvic radiograph. <Electronically signed by Jesus Herring > 02/24/21 [id number]
--- NOTE | 2021-02-24 09:17 | REP ---
INDICATION: DORSALGIA, UNSPECIFIED COMPARISON: None. TECHNIQUE: AP, lateral, flexion/extension, bilateral oblique, and coned-down views. FINDINGS: Alignment and lordosis is maintained. The vertebral bodies including transverse process and spinous processes are intact and normal. There is no evidence for acute fracture / compression injury or subluxation. No evidence for spondylolysis or spondylolisthesis. No significant degenerative change is noted. IMPRESSION: Normal lumbosacral spine radiograph series. <Electronically signed by Jesus Herring > 02/24/21 0941
== END ==
LOC: M RAD 08:40
PROVIDERS: ATTEND Internal Medicine
DX: M54.9 Dorsalgia, unspecified (principal)

== ENCOUNTER → 2021-03-06 | Outpatient (CLI) | payer MEDICARE, MEDICAID ==
--- NOTE | 2021-03-06 13:32 | REP ---
INDICATION: DORSALGIA. Lower back and pelvic pain. COMPARISON: Comparison radiograph is from February 24, 2021. TECHNIQUE: Axial, coronal, and sagittal imaging planes are utilized. T1 and T2 weighted sequences include spin echo, turbo spin echo, inversion recovery sequences with without fat saturation. FINDINGS: Cortical and medullary bone signal intensity are normal in the bony pelvis. Proximal femurs show normal signal intensity. The thecal sac does not appear to be compressed in the lower lumbar and is upper sacral segments. Cortical and medullary bone signal intensity appear normal in the sacrum. There is no evidence to suggest sacroiliitis. No hip joint effusion is seen on either side. The visualized urinary bladder padilla are smooth. There is a follicle cyst in the left ovary measuring 2.6 cm in greatest diameter. No ovarian mass is seen. No free fluid is noted. An intrauterine device is seen in good position in the uterus. Uterus is normal in appearance. Its dimensions are normal, 7.7 x 4.2 x 5.1 cm. No pelvic adenopathy is seen. No abdominal wall defect is appreciated. IMPRESSION: IUD in place. Unremarkable pelvic MRI study. <Electronically signed by Andrea Jennings > 03/06/21 [id number]
== END ==
LOC: M PLAIMG 12:18
PROVIDERS: ATTEND Internal Medicine
DX: M54.9 Dorsalgia, unspecified (principal); Z97.5 Presence of (intrauterine) contraceptive device

== ENCOUNTER → 2021-05-19 | Outpatient (CLI) | payer MEDICARE, MEDICAID ==
[2021-05-19 13:22] LABS: THYROID STIMULATING HORMONE 5.2 uIU/ML (0.358-3.740)
== END ==
LOC: M LAB 11:06
PROVIDERS: ATTEND Nurse Practitioner Family
DX: E06.3 Autoimmune thyroiditis (principal)

== ENCOUNTER → 2021-07-21 | Outpatient (CLI) | payer MEDICARE, MEDICAID ==
[~2021-07-21] MED LIST changes: -FLUO10CA16 PO; +FLUO10CA18 PO
[2021-07-22 20:07] LABS: ANA (HEP2) Negative (.)
== END ==
LOC: M LAB 08:48
PROVIDERS: ATTEND Internal Medicine
DX: E55.9 Vitamin D deficiency, unspecified (principal); R53.82 Chronic fatigue, unspecified

== ENCOUNTER → 2021-08-21 | Outpatient (CLI) | payer MEDICARE, MEDICAID ==
[2021-08-21 14:44] LABS: FREE T4 1.23 NG/DL (0.76-1.46); THYROID STIMULATING HORMONE 2.36 uIU/ML (0.358-3.740)
== END ==
LOC: M LAB 13:17
PROVIDERS: ATTEND Nurse Practitioner Family
DX: E06.3 Autoimmune thyroiditis (principal)

== ENCOUNTER → 2021-09-16 | Outpatient (CLI) | payer MEDICARE, MEDICAID ==
[2021-09-16 13:21] LABS: HCG, SERUM QUALITATIVE NEGATIVE (NEGATIVE)
== END ==
LOC: M LAB 10:47
PROVIDERS: ATTEND Obstetrics & Gynecology
DX: Z32.00 Encounter for pregnancy test, result unknown (principal)

== ENCOUNTER 2021-12-14 08:39 | Emergency (ER) | payer MEDICARE, MEDICAID ==
[~2021-12-14] VITALS: Ht 162.6 cm; Wt 104.1 kg
[2021-12-14] MEDS ORDERED: JARD1TAB PO (08:47)
[2021-12-14] MEDS ORDERED: NS 1,000 ML IV ONE (11:50)
[2021-12-14 12:53] LABS: BASO % 0.4 % (0.0-1.0); EOS # 0.1 10^3/uL (0.0-0.5); EOS % 0.8 % (0.0-3.0); HEMATOCRIT 44.2 % (36.0-47.0); HEMOGLOBIN 14.7 g/dl (12.0-15.5); LYMPH # 2.3 10^3/uL (1.5-5.0); LYMPH % 22.4 % (24.0-44.0); MEAN CORPUSCULAR HEMOGLOBIN 30.2 pg (27.0-33.0); MEAN CORPUSCULAR HGB CONC 33.3 g/dl (32.0-36.5); MEAN CORPUSCULAR VOLUME 90.9 fl (80.0-96.0); MONO # 0.9 10^3/uL (0.0-0.8); MONO % 8.5 % (2.0-8.0); NEUTROPHILS # 6.8 10^3/uL (1.5-8.5); NEUTROPHILS % 67.6 % (36.0-66.0); PLATELET COUNT, AUTOMATED 311 10^3/uL (150-450); RED BLOOD COUNT 4.86 10^6/uL (4.00-5.40); WHITE BLOOD COUNT 10.1 10^3/uL (4.0-10.0)
[2021-12-14] MEDS ORDERED: ISOVUE-370 76% 100ML VIAL As Ordered ONE (13:05)
[2021-12-14 13:12] LABS: ERYTHROCYTE SEDIMENTATION RATE 21 mm/hr (0-20)
[2021-12-14 13:40] VITALS: BP 108/61
[2021-12-14] MEDS ORDERED: cefTRIAXone SOD 1 GM in D5W MINI-BAG PLUS 50 ML IV ONE (13:45)
[2021-12-14] MEDS ORDERED: KETOROLAC 30 MG/ML 1ML VIAL IV ONE (13:45)
[2021-12-14] MEDS ORDERED: CEFD300C41 PO (15:00)
== END 2021-12-14 15:20 | disposition home or self-care (01) ==
LOC: M ED 08:39
DX: H60.91 Unspecified otitis externa, right ear (principal); E11.9 Type 2 diabetes mellitus without complications; F33.9 Major depressive disorder, recurrent, unspecified; E03.9 Hypothyroidism, unspecified; Z79.899 Other long term (current) drug therapy; Z79.84 Long term (current) use of oral hypoglycemic drugs; Z79.890 Hormone replacement therapy
CPT/HCPCS: 70487; 80047; 84702; 85025; 85652; 86140; 96361; 96365; 96366; 96375; 99283; J0696; J1885; Q9967

== ENCOUNTER → 2022-02-19 | Outpatient (CLI) | payer MEDICARE, MEDICAID ==
[~2022-02-19] MED LIST changes: +CEFD300C41 PO; +JARD1TAB PO
[2022-02-19 09:58] LABS: FREE T4 0.97 NG/DL (0.76-1.46); THYROID STIMULATING HORMONE 3.89 uIU/ML (0.358-3.740)
== END ==
LOC: M LAB 08:40
PROVIDERS: ATTEND Internal Medicine Endocrinology, Diabetes & Metabolism
DX: E06.3 Autoimmune thyroiditis (principal)

== ENCOUNTER → 2022-03-30 | Outpatient (REF) | payer MEDICARE, MEDICAID ==
[2022-03-30 12:28] LABS: ALBUMIN 3.5 GM/DL (3.2-5.2); ALT/SGPT 18 U/L (12-78); BILIRUBIN,TOTAL 0.6 MG/DL (0.2-1.0); BLOOD UREA NITROGEN 16 MG/DL (7-18); CALCIUM LEVEL 8.6 MG/DL (8.5-10.1); CARBON DIOXIDE LEVEL 28 MEQ/L (21-32); CHLORIDE LEVEL 106 MEQ/L (98-107); CHOLESTEROL LEVEL 176 MG/DL (<200); CHOLESTEROL RISK RATIO 3.259 (<5); CREATININE FOR GFR 0.74 MG/DL (0.55-1.30); GLOMERULAR FILTRATION RATE > 60.0 (>60); GLUCOSE, FASTING 151 MG/DL (70-100); HDL CHOLESTEROL 54 MG/DL (>40); LDL CHOLESTEROL 100 MG/DL (<100); NON-HDL-C 122 MG/DL; POTASSIUM SERUM 4.2 MEQ/L (3.5-5.1); SODIUM LEVEL 137 MEQ/L (136-145); TOTAL PROTEIN 7.3 GM/DL (6.4-8.2); TRIGLYCERIDES LEVEL 108 MG/DL (<150)
[2022-03-30 12:50] LABS: HEMOGLOBIN A1c 6.5 %
== END ==
LOC: M LAB REF 11:39
PROVIDERS: ATTEND Nurse Practitioner Family
DX: E03.9 Hypothyroidism, unspecified (principal); E11.9 Type 2 diabetes mellitus without complications

== ENCOUNTER → 2022-05-13 | Outpatient (REF) | payer MEDICARE, MEDICAID ==
[2022-05-13 18:38] LABS: ALBUMIN 3.7 G/DL (3.2-5.2); ALKALINE PHOSPHATASE 81 U/L (46-116); ALT/SGPT 19 U/L (7.0-40); AST/SGOT 18 U/L (<34); BILIRUBIN,TOTAL 0.5 MG/DL (0.3-1.2); BLOOD UREA NITROGEN 15 MG/DL (9-23); CALCIUM LEVEL 9.3 MG/DL (8.5-10.1); CARBON DIOXIDE LEVEL 24 MMOL/L (20-31); CHLORIDE LEVEL 102 MMOL/L (98-107); CHOLESTEROL LEVEL 163 MG/DL (<200); CREATININE FOR GFR 0.62 MG/DL (0.55-1.30); GLOMERULAR FILTRATION RATE > 60.0 (>60); GLUCOSE, FASTING 126 MG/DL (60-100); HDL CHOLESTEROL 47.9 MG/DL (>40); LDL CHOLESTEROL 84.9 MG/DL (<100); NON-HDL-C 115 MG/DL; POTASSIUM SERUM 4.5 MMOL/L (3.5-5.1); SODIUM LEVEL 136 MMOL/L (136-145); TOTAL PROTEIN 7.7 G/DL (5.7-8.2); TRIGLYCERIDES LEVEL 151 MG/DL (<150)
== END ==
LOC: M LAB REF 16:25
PROVIDERS: ATTEND Family Medicine Addiction Medicine
DX: E11.9 Type 2 diabetes mellitus without complications (principal)

== ENCOUNTER → 2022-06-18 | Outpatient (REF) | payer MEDICARE, MEDICAID ==
[2022-06-18 13:35] LABS: HEMOGLOBIN A1c 6.2 % (4.0-6.0)
[2022-06-18 13:49] LABS: ALBUMIN 3.6 G/DL (3.2-5.2); ALKALINE PHOSPHATASE 85 U/L (46-116); ALT/SGPT 15 U/L (7.0-40); AST/SGOT 20 U/L (<34); BILIRUBIN,TOTAL 0.5 MG/DL (0.3-1.2); BLOOD UREA NITROGEN 14 MG/DL (9-23); CALCIUM LEVEL 8.7 MG/DL (8.5-10.1); CARBON DIOXIDE LEVEL 27 MMOL/L (20-31); CHLORIDE LEVEL 104 MMOL/L (98-107); CHOLESTEROL LEVEL 169 MG/DL (<200); GLOMERULAR FILTRATION RATE > 60.0 (>60); GLUCOSE, FASTING 112 MG/DL (60-100); HDL CHOLESTEROL 45.6 MG/DL (>40); NON-HDL-C 123 MG/DL; POTASSIUM SERUM 4.4 MMOL/L (3.5-5.1); SODIUM LEVEL 141 MMOL/L (136-145); TRIGLYCERIDES LEVEL 107 MG/DL (<150)
[2022-06-18 13:50] LABS: THYROID STIMULATING HORMONE 7.384 uIU/ML (0.55-4.78)
== END ==
LOC: M LAB REF 12:52
PROVIDERS: ATTEND Family Medicine Addiction Medicine
DX: R73.03 Prediabetes (principal); Z79.899 Other long term (current) drug therapy

== ENCOUNTER 2022-07-04 15:44 | Emergency (ER) | payer MEDICARE, MEDICAID ==
[~2022-07-04] VITALS: Ht 162.6 cm; Wt 104.5 kg
[2022-07-04 15:45] VITALS: BP 117/70
== END 2022-07-04 22:32 | disposition left against medical advice (07) ==
LOC: M ED 15:44
DX: Z53.21 Procedure and treatment not carried out due to patient leaving prior to being seen by health care provider (principal)

== ENCOUNTER → 2022-07-09 | Outpatient (REF) | payer MEDICARE, MEDICAID ==
[2022-07-09 12:57] LABS: HEMOGLOBIN A1c 6.2 % (4.0-6.0)
[2022-07-09 13:17] LABS: ALBUMIN 3.7 G/DL (3.2-5.2); ALKALINE PHOSPHATASE 81 U/L (46-116); ALT/SGPT 22 U/L (7.0-40); AST/SGOT 23 U/L (<34); BILIRUBIN,TOTAL 0.4 MG/DL (0.3-1.2); BLOOD UREA NITROGEN 15 MG/DL (9-23); CALCIUM LEVEL 8.7 MG/DL (8.5-10.1); CARBON DIOXIDE LEVEL 29 MMOL/L (20-31); CHLORIDE LEVEL 104 MMOL/L (98-107); CHOLESTEROL LEVEL 149 MG/DL (<200); CHOLESTEROL RISK RATIO 3.78 (<5); CREATININE FOR GFR 0.73 MG/DL (0.55-1.30); GLOMERULAR FILTRATION RATE > 60.0 (>60); GLUCOSE, FASTING 104 MG/DL (60-100); HDL CHOLESTEROL 39.4 MG/DL (>40); LDL CHOLESTEROL 91.4 MG/DL (<100); NON-HDL-C 110 MG/DL; POTASSIUM SERUM 4.1 MMOL/L (3.5-5.1); SODIUM LEVEL 139 MMOL/L (136-145); THYROID STIMULATING HORMONE 5.877 uIU/ML (0.55-4.78); TOTAL PROTEIN 7.5 G/DL (5.7-8.2); TRIGLYCERIDES LEVEL 91 MG/DL (<150)
== END ==
LOC: M LAB REF 12:24
PROVIDERS: ATTEND Family Medicine Addiction Medicine
DX: E11.9 Type 2 diabetes mellitus without complications (principal)

== ENCOUNTER → 2022-08-10 | Outpatient (CLI) | payer MEDICARE, MEDICAID ==
[2022-08-10 10:56] LABS: BASO # 0.1 10^3/uL (0.0-0.2); BASO % 0.5 % (0.0-1.0); EOS # 0.1 10^3/uL (0.0-0.5); HEMATOCRIT 40.4 % (36.0-47.0); HEMOGLOBIN 13.5 g/dl (12.0-15.5); LYMPH # 2.5 10^3/uL (1.5-5.0); LYMPH % 25.7 % (24.0-44.0); MEAN CORPUSCULAR HEMOGLOBIN 29.8 pg (27.0-33.0); MEAN CORPUSCULAR HGB CONC 33.4 g/dl (32.0-36.5); MEAN CORPUSCULAR VOLUME 89.2 fl (80.0-96.0); MONO # 0.7 10^3/uL (0.0-0.8); MONO % 6.7 % (2.0-8.0); NEUTROPHILS # 6.5 10^3/uL (1.5-8.5); NEUTROPHILS % 65.6 % (36.0-66.0); PLATELET COUNT, AUTOMATED 295 10^3/uL (150-450); RED BLOOD COUNT 4.53 10^6/uL (4.00-5.40); WHITE BLOOD COUNT 9.9 10^3/uL (4.0-10.0)
[2022-08-10 11:41] LABS: ALBUMIN 3.8 G/DL (3.2-5.2); ALKALINE PHOSPHATASE 92 U/L (46-116); ALT/SGPT 16 U/L (7.0-40); AST/SGOT 23 U/L (<34); BILIRUBIN,TOTAL 0.5 MG/DL (0.3-1.2); BLOOD UREA NITROGEN 22 MG/DL (9-23); CALCIUM LEVEL 8.7 MG/DL (8.5-10.1); CARBON DIOXIDE LEVEL 26 MMOL/L (20-31); CHLORIDE LEVEL 104 MMOL/L (98-107); CHOLESTEROL LEVEL 171 MG/DL (<200); CHOLESTEROL RISK RATIO 3.59 (<5); CREATININE FOR GFR 0.66 MG/DL (0.55-1.30); FREE THYROXINE INDEX 2.4 % (1.3-4.8); GLOMERULAR FILTRATION RATE > 60.0 (>60); GLUCOSE, FASTING 194 MG/DL (60-100); HDL CHOLESTEROL 47.6 MG/DL (>40); LDL CHOLESTEROL 94.4 MG/DL (<100); NON-HDL-C 123 MG/DL; POTASSIUM SERUM 3.9 MMOL/L (3.5-5.1); SODIUM LEVEL 138 MMOL/L (136-145); T UPTAKE 34.7 % (22.5-37.0); THYROID STIMULATING HORMONE 4.159 uIU/ML (0.55-4.78); TOTAL PROTEIN 7.5 G/DL (5.7-8.2); TRIGLYCERIDES LEVEL 145 MG/DL (<150)
[2022-08-10 11:50] LABS: HEPATITIS B SURFACE ANTIGEN NEGATIVE (NEGATIVE)
[2022-08-10 12:03] LABS: HIV 1&2 SCREEN CENTAUR NEGATIVE (NEGATIVE)
[2022-08-10 12:12] LABS: HEPATITIS B CORE ANTIBODY IGM NEGATIVE (NEGATIVE)
== END ==
LOC: M LAB 10:31
PROVIDERS: ATTEND Nurse Practitioner Family
DX: L63.0 Alopecia (capitis) totalis (principal)

== ENCOUNTER → 2022-08-24 | Outpatient (REF) | payer MEDICARE, MEDICAID ==
[2022-08-24 14:09] LABS: HEMOGLOBIN A1c 6.3 % (4.0-6.0)
[2022-08-24 14:14] LABS: THYROID STIMULATING HORMONE 4.141 uIU/ML (0.55-4.78)
[2022-08-24 14:16] LABS: ALBUMIN 3.5 G/DL (3.2-5.2); ALKALINE PHOSPHATASE 81 U/L (46-116); ALT/SGPT 12 U/L (7.0-40); AST/SGOT 17 U/L (<34); BILIRUBIN,TOTAL 0.5 MG/DL (0.3-1.2); BLOOD UREA NITROGEN 17 MG/DL (9-23); CALCIUM LEVEL 8.4 MG/DL (8.5-10.1); CARBON DIOXIDE LEVEL 25 MMOL/L (20-31); CHLORIDE LEVEL 106 MMOL/L (98-107); CHOLESTEROL LEVEL 161 MG/DL (<200); CHOLESTEROL RISK RATIO 3.44 (<5); CREATININE FOR GFR 0.67 MG/DL (0.55-1.30); GLOMERULAR FILTRATION RATE > 60.0 (>60); GLUCOSE, FASTING 135 MG/DL (60-100); HDL CHOLESTEROL 46.7 MG/DL (>40); LDL CHOLESTEROL 101.3 MG/DL (<100); NON-HDL-C 114.3 MG/DL; POTASSIUM SERUM 4.4 MMOL/L (3.5-5.1); SODIUM LEVEL 139 MMOL/L (136-145); TOTAL PROTEIN 6.9 G/DL (5.7-8.2); TRIGLYCERIDES LEVEL 65 MG/DL (<150)
== END ==
LOC: M LAB REF 11:51
PROVIDERS: ATTEND Family Medicine Addiction Medicine
DX: E11.9 Type 2 diabetes mellitus without complications (principal)

== ENCOUNTER → 2022-09-14 | Outpatient (CLI) | payer MEDICARE, MEDICAID ==
[~2022-09-14] MED LIST changes: +FLUT50SP17; -FLUTISP
[2022-09-14 12:26] LABS: BASO # 0.1 10^3/uL (0.0-0.2); BASO % 0.5 % (0.0-1.0); EOS # 0.1 10^3/uL (0.0-0.5); HEMATOCRIT 41.5 % (36.0-47.0); HEMOGLOBIN 13.7 g/dl (12.0-15.5); LYMPH # 2.9 10^3/uL (1.5-5.0); LYMPH % 28.4 % (24.0-44.0); MEAN CORPUSCULAR HEMOGLOBIN 29.6 pg (27.0-33.0); MEAN CORPUSCULAR VOLUME 89.6 fl (80.0-96.0); MONO # 0.7 10^3/uL (0.0-0.8); MONO % 7.1 % (2.0-8.0); NEUTROPHILS # 6.5 10^3/uL (1.5-8.5); NEUTROPHILS % 62.7 % (36.0-66.0); PLATELET COUNT, AUTOMATED 307 10^3/uL (150-450); RED BLOOD COUNT 4.63 10^6/uL (4.00-5.40); WHITE BLOOD COUNT 10.3 10^3/uL (4.0-10.0)
[2022-09-14 15:24] LABS: ALBUMIN 3.8 G/DL (3.2-5.2); ALKALINE PHOSPHATASE 98 U/L (46-116); ALT/SGPT 14 U/L (7.0-40); AST/SGOT 19 U/L (<34); BILIRUBIN,TOTAL 0.4 MG/DL (0.3-1.2); BLOOD UREA NITROGEN 20 MG/DL (9-23); CALCIUM LEVEL 9.1 MG/DL (8.5-10.1); CARBON DIOXIDE LEVEL 25 MMOL/L (20-31); CHLORIDE LEVEL 104 MMOL/L (98-107); CHOLESTEROL LEVEL 189 MG/DL (<200); CHOLESTEROL RISK RATIO 3.56 (<5); CREATININE FOR GFR 0.64 MG/DL (0.55-1.30); FREE THYROXINE INDEX 2.4 % (1.3-4.8); GLOMERULAR FILTRATION RATE > 60.0 (>60); GLUCOSE, FASTING 156 MG/DL (60-100); POTASSIUM SERUM 4.1 MMOL/L (3.5-5.1); SODIUM LEVEL 136 MMOL/L (136-145); T UPTAKE 31.5 % (22.5-37.0); THYROID STIMULATING HORMONE 6.306 uIU/ML (0.55-4.78); THYROXINE (T4) 7.5 UG/DL (4.5-10.9)
[2022-09-14 18:45] LABS: LDL CHOLESTEROL 106.2 MG/DL (<100); TOTAL PROTEIN 7.7 G/DL (5.7-8.2); TRIGLYCERIDES LEVEL 149 MG/DL (<150)
[2022-09-14 18:59] LABS: HEPATITIS B SURFACE ANTIGEN NEGATIVE (NEGATIVE)
[2022-09-14 19:20] LABS: HEPATITIS B CORE ANTIBODY IGM NEGATIVE (NEGATIVE)
[2022-09-14 19:37] LABS: HIV 1&2 SCREEN CENTAUR NEGATIVE (NEGATIVE)
== END ==
LOC: M LAB 11:05
PROVIDERS: ATTEND Nurse Practitioner Family
DX: L63.0 Alopecia (capitis) totalis (principal); Z79.899 Other long term (current) drug therapy

== ENCOUNTER → 2022-11-16 | Outpatient (REF) | payer MEDICARE, MEDICAID ==
[2022-11-16 14:55] LABS: ALBUMIN 3.6 G/DL (3.2-5.2); ALKALINE PHOSPHATASE 92 U/L (46-116); ALT/SGPT 12 U/L (7.0-40); AST/SGOT 14 U/L (<34); BILIRUBIN,TOTAL 0.4 MG/DL (0.3-1.2); BLOOD UREA NITROGEN 16 MG/DL (9-23); CARBON DIOXIDE LEVEL 28 MMOL/L (20-31); CHLORIDE LEVEL 106 MMOL/L (98-107); CHOLESTEROL LEVEL 168 MG/DL (<200); CHOLESTEROL RISK RATIO 3.54 (<5); CREATININE FOR GFR 0.77 MG/DL (0.55-1.30); GLOMERULAR FILTRATION RATE > 60.0 (>60); GLUCOSE, FASTING 151 MG/DL (60-100); HDL CHOLESTEROL 47.4 MG/DL (>40); LDL CHOLESTEROL 105.2 MG/DL (<100); NON-HDL-C 120.6 MG/DL; POTASSIUM SERUM 4.1 MMOL/L (3.5-5.1); SODIUM LEVEL 140 MMOL/L (136-145); TOTAL PROTEIN 6.8 G/DL (5.7-8.2); TRIGLYCERIDES LEVEL 77 MG/DL (<150)
[2022-11-16 14:58] LABS: THYROID STIMULATING HORMONE 9.574 uIU/ML (0.55-4.78)
[2022-11-16 15:32] LABS: HEMOGLOBIN A1c 6.4 % (4.0-6.0)
== END ==
LOC: M LAB REF 13:27
PROVIDERS: ATTEND Family Medicine Addiction Medicine
DX: E78.5 Hyperlipidemia, unspecified (principal); R73.03 Prediabetes

== ENCOUNTER → 2022-11-26 | Outpatient (CLI) | payer MEDICARE, MEDICAID | LOC: M PLAIMG 10:10 | PROVIDERS: ATTEND Nurse Practitioner Family | DX: R42 Dizziness and giddiness (principal) ==

== ENCOUNTER → 2022-12-22 | Outpatient (REF) | payer MEDICARE, MEDICAID | LOC: M LAB REF 12:00 | PROVIDERS: ATTEND Nurse Practitioner Family | DX: J02.9 Acute pharyngitis, unspecified (principal) ==

== ENCOUNTER → 2023-01-21 | Outpatient (CLI) | payer MEDICARE ==
[~2023-01-21] MED LIST changes: +PROHANCE 279.3MG/ML 15ML VIAL As Ordered ONE; +PROHANCE 279.3MG/ML 5ML VIAL As Ordered ONE
== END ==
LOC: M RAD 10:34
PROVIDERS: ATTEND Nurse Practitioner Family
DX: G35 Multiple sclerosis (principal); R42 Dizziness and giddiness; R41.89 Other symptoms and signs involving cognitive functions and awareness; M21.371 Foot drop, right foot; M54.12 Radiculopathy, cervical region
CPT/HCPCS: 70553; A9576

== ENCOUNTER → 2023-01-28 | Outpatient (CLI) | payer MEDICARE | LOC: M RAD 14:19 | PROVIDERS: ATTEND Nurse Practitioner | DX: R42 Dizziness and giddiness (principal); R41.89 Other symptoms and signs involving cognitive functions and awareness; M21.371 Foot drop, right foot; M54.12 Radiculopathy, cervical region; G35 Multiple sclerosis | CPT/HCPCS: 72156; 72157; A9576 ==

== ENCOUNTER 2023-02-18 08:00 | Emergency (ER) | payer MEDICARE ==
[~2023-02-18] VITALS: Ht 162.6 cm; Wt 103.5 kg
[~2023-02-18 08:00] MED LIST changes: -CELE1CAP7 PO; +CELE1CAP8 PO; -PROHANCE 279.3MG/ML 15ML VIAL As Ordered ONE; -PROHANCE 279.3MG/ML 5ML VIAL As Ordered ONE
[2023-02-18] MEDS ORDERED: BACT800T5 PO (09:04)
[2023-02-18 09:15] VITALS: BP 111/64; TEMP 97.7; O2SAT 97
== END 2023-02-18 09:16 | disposition home or self-care (01) ==
LOC: M ED 08:00
DX: L03.011 Cellulitis of right finger (principal); Z79.899 Other long term (current) drug therapy

== ENCOUNTER → 2023-04-01 | Outpatient (REF) | payer MEDICARE, MEDICAID ==
[~2023-04-01] MED LIST changes: +BACT800T5 PO; -CEFD300C41 PO; +CEFD300C42 PO; -CELE1CAP8 PO; +CELE1CAP99 PO
[2023-04-01 14:22] LABS: HCG, SERUM QUALITATIVE NEGATIVE (NEGATIVE)
== END ==
LOC: M LAB REF 12:11
PROVIDERS: ATTEND Family Medicine Addiction Medicine
DX: R11.0 Nausea (principal)

== ENCOUNTER → 2023-04-08 | Outpatient (CLI) | payer MEDICARE, MEDICAID | LOC: M WHC 11:33 | PROVIDERS: ATTEND Family Medicine Addiction Medicine | DX: E04.1 Nontoxic single thyroid nodule (principal) ==

== ENCOUNTER → 2023-04-16 | Outpatient (REF) | payer MEDICARE, MEDICAID ==
[2023-04-16 12:05] LABS: ALBUMIN 3.5 G/DL (3.2-5.2); ALKALINE PHOSPHATASE 89 U/L (46-116); ALT/SGPT 9 U/L (7.0-40); AST/SGOT 16 U/L (<34); BILIRUBIN,TOTAL 0.4 MG/DL (0.3-1.2); BLOOD UREA NITROGEN 14 MG/DL (9-23); CALCIUM LEVEL 8.9 MG/DL (8.5-10.1); CARBON DIOXIDE LEVEL 27 MMOL/L (20-31); CHLORIDE LEVEL 106 MMOL/L (98-107); CHOLESTEROL LEVEL 177 MG/DL (<200); CHOLESTEROL RISK RATIO 3.86 (<5); CREATININE FOR GFR 0.72 MG/DL (0.55-1.30); GLOMERULAR FILTRATION RATE > 60.0 (>60); GLUCOSE, FASTING 156 MG/DL (60-100); HDL CHOLESTEROL 45.8 MG/DL (>40); LDL CHOLESTEROL 101.2 MG/DL (<100); NON-HDL-C 131.2 MG/DL; POTASSIUM SERUM 4.3 MMOL/L (3.5-5.1); SODIUM LEVEL 139 MMOL/L (136-145); TOTAL PROTEIN 7.4 G/DL (5.7-8.2); TRIGLYCERIDES LEVEL 150 MG/DL (<150)
[2023-04-16 12:09] LABS: THYROID STIMULATING HORMONE 5.556 uIU/ML (0.55-4.78)
[2023-04-16 12:13] LABS: HEMOGLOBIN A1c 6.6 % (4.0-6.0)
== END ==
LOC: M LAB REF 11:23
PROVIDERS: ATTEND Family Medicine Addiction Medicine
DX: E11.9 Type 2 diabetes mellitus without complications (principal)

== ENCOUNTER → 2023-08-05 | Outpatient (CLI) | payer MEDICARE ==
[~2023-08-05] MED LIST changes: +CEFD1CAP9 PO; -CEFD300C42 PO; -FLUT50SP17; +FLUTISP
== END ==
LOC: M PLARAD 08:09
PROVIDERS: ATTEND Nurse Practitioner Family
DX: G44.229 Chronic tension-type headache, not intractable (principal); G43.709 Chronic migraine without aura, not intractable, without status migrainosus; R42 Dizziness and giddiness

== ENCOUNTER → 2023-09-16 | Outpatient (CLI) | payer MEDICARE ==
[2023-09-16 09:57] LABS: FREE T4 0.87 NG/DL (0.89-1.76); THYROID STIMULATING HORMONE 6.704 uIU/ML (0.55-4.78)
== END ==
LOC: M LAB 08:29
PROVIDERS: ATTEND Internal Medicine Endocrinology, Diabetes & Metabolism
DX: E06.3 Autoimmune thyroiditis (principal)

== ENCOUNTER → 2023-09-27 | Outpatient (REF) | payer MEDICARE, MEDICAID | LOC: M LAB REF 15:18 | PROVIDERS: ATTEND Internal Medicine Endocrinology, Diabetes & Metabolism | DX: E04.2 Nontoxic multinodular goiter (principal) ==

== ENCOUNTER 2023-11-15 10:47 | Day surgery (SDC) | payer MEDICARE ==
[~2023-11-15] VITALS: Ht 162.6 cm; Wt 105.7 kg
[~2023-11-15 10:47] MED LIST changes: +FLUO-290 PO; -FLUO10CA18 PO; +NS 1,000 ML IV ONE; +VENL75TA2 PO
[2023-11-15] MEDS: NS 1,000 ML IV ONE (11:20)
[2023-11-15] MEDS ORDERED: propofoL 200 MG/20 ML VIAL As Ordered ONE (11:38)
[2023-11-15] MEDS ORDERED: LIDOCAINE 2% 100MG/5ML SDV (FOR ANES.) As Ordered ONE (12:15)
[2023-11-15 13:10] VITALS: BP 125/71; TEMP 99.3; O2SAT 99
== END 2023-11-15 13:10 | disposition home or self-care (01) ==
LOC: M OPP 10:47
PROVIDERS: ATTEND Internal Medicine Gastroenterology
DX: Z12.11 Encounter for screening for malignant neoplasm of colon (principal); Z80.0 Family history of malignant neoplasm of digestive organs; D12.2 Benign neoplasm of ascending colon; K64.0 First degree hemorrhoids; E03.9 Hypothyroidism, unspecified; R73.09 Other abnormal glucose; Z79.1 Long term (current) use of non-steroidal anti-inflammatories (NSAID); Z79.52 Long term (current) use of systemic steroids; Z79.84 Long term (current) use of oral hypoglycemic drugs; Z79.890 Hormone replacement therapy; Z79.899 Other long term (current) drug therapy

== ENCOUNTER → 2023-12-27 | Outpatient (CLI) | payer MEDICARE ==
[~2023-12-27] MED LIST changes: -NS 1,000 ML IV ONE
[2023-12-27 10:52] LABS: THYROID STIMULATING HORMONE 4.381 uIU/ML (0.55-4.78)
[2023-12-27 10:53] LABS: FREE T4 0.94 NG/DL (0.89-1.76)
== END ==
LOC: M LAB 09:18
PROVIDERS: ATTEND Nurse Practitioner Family
DX: E06.3 Autoimmune thyroiditis (principal)

== ENCOUNTER → 2024-03-13 | Outpatient (CLI) | payer MEDICARE ==
[~2024-03-13] MED LIST changes: +E-Z-GAS II EFFERVESCENT PACKET (SODIUM BICARB./CITRIC ACID/SIMETHICONE) As Ordered ONE; +E-Z-HD 98% w/w 340GM SUSP BTL As Ordered ONE; +E-Z-PAQUE 96% w/w SUSP 176GM BTL As Ordered ONE; +GABA-1172 PO; -GABA-282 PO
== END ==
LOC: M RAD 09:38
PROVIDERS: ATTEND Family Medicine Addiction Medicine
DX: R13.10 Dysphagia, unspecified (principal); K44.9 Diaphragmatic hernia without obstruction or gangrene

== ENCOUNTER 2024-03-17 09:42 | Emergency (ER) | payer MEDICARE ==
[~2024-03-17] VITALS: Ht 162.6 cm; Wt 105.3 kg
[~2024-03-17 09:42] MED LIST changes: -E-Z-GAS II EFFERVESCENT PACKET (SODIUM BICARB./CITRIC ACID/SIMETHICONE) As Ordered ONE; -E-Z-HD 98% w/w 340GM SUSP BTL As Ordered ONE; -E-Z-PAQUE 96% w/w SUSP 176GM BTL As Ordered ONE
[2024-03-17 12:18] LABS: BASO % 0.3 % (0.0-1.0); EOS # 0.1 10^3/uL (0.0-0.5); EOS % 0.5 % (0.0-3.0); HEMATOCRIT 41.7 % (36.0-47.0); HEMOGLOBIN 14.1 g/dl (12.0-15.5); LYMPH # 2.9 10^3/uL (1.5-5.0); LYMPH % 22.5 % (24.0-44.0); MEAN CORPUSCULAR HEMOGLOBIN 30.4 pg (27.0-33.0); MEAN CORPUSCULAR HGB CONC 33.8 g/dl (32.0-36.5); MEAN CORPUSCULAR VOLUME 89.9 fl (80.0-96.0); MONO % 7.9 % (2.0-8.0); NEUTROPHILS # 8.8 10^3/uL (1.5-8.5); NEUTROPHILS % 68.5 % (36.0-66.0); PLATELET COUNT, AUTOMATED 295 10^3/uL (150-450); RED BLOOD COUNT 4.64 10^6/uL (4.00-5.40); WHITE BLOOD COUNT 12.9 10^3/uL (4.0-10.0)
[2024-03-17 12:39] LABS: ALBUMIN 3.7 G/DL (3.2-5.2); BILIRUBIN,DIRECT 0.2 MG/DL (<0.4); BILIRUBIN,TOTAL 0.5 MG/DL (0.3-1.2); TOTAL PROTEIN 7.8 G/DL (5.7-8.2)
[2024-03-17 12:44] LABS: INR 1.14; PARTIAL THROMBOPLASTIN TIME 28.7 SECONDS (24.8-34.2); PROTHROMBIN TIME 14.3 SECONDS (12.5-14.5)
[2024-03-17] MEDS ORDERED: ISOVUE-370 76% 100ML VIAL As Ordered ONE (12:57)
[2024-03-17] MEDS ORDERED: COLA100C5 PO (13:54)
[2024-03-17 14:25] VITALS: BP 115/55; TEMP 98.7; O2SAT 98
== END 2024-03-17 14:29 | disposition home or self-care (01) ==
LOC: M ED 09:42
DX: K64.8 Other hemorrhoids (principal); K62.5 Hemorrhage of anus and rectum; Z79.1 Long term (current) use of non-steroidal anti-inflammatories (NSAID); Z79.899 Other long term (current) drug therapy

== ENCOUNTER 2024-05-31 08:22 | Day surgery (SDC) | payer MEDICARE ==
[~2024-05-31] VITALS: Ht 162.6 cm; Wt 102.8 kg
[2024-05-31] MEDS ORDERED: LIDOCAINE 2% 100MG/5ML SDV (FOR ANES.) As Ordered ONE (08:52)
[2024-05-31] MEDS ORDERED: fentaNYL 100 MCG/2 ML INJECTION As Ordered ONE (08:52)
[2024-05-31] MEDS ORDERED: propofoL 200 MG/20 ML VIAL As Ordered ONE (08:52)
[2024-05-31 10:50] VITALS: BP 133/76; TEMP 98; O2SAT 98
== END 2024-05-31 10:55 | disposition home or self-care (01) ==
LOC: M OPP 08:22
PROVIDERS: ATTEND Internal Medicine Gastroenterology
DX: R13.10 Dysphagia, unspecified (principal); E11.9 Type 2 diabetes mellitus without complications; E03.9 Hypothyroidism, unspecified; F41.9 Anxiety disorder, unspecified; F32.A Depression, unspecified; Z79.84 Long term (current) use of oral hypoglycemic drugs; Z79.890 Hormone replacement therapy; Z79.899 Other long term (current) drug therapy
CPT/HCPCS: 43249; J3010

== ENCOUNTER → 2025-02-09 | Outpatient (REF) | payer MEDICARE | LOC: M LAB REF 17:09 | PROVIDERS: ATTEND Physician Assistant | DX: J02.9 Acute pharyngitis, unspecified (principal) ==

== ENCOUNTER → 2025-02-27 | Outpatient (CLI) | payer MEDICARE | LOC: M RAD 10:44 | PROVIDERS: ATTEND Physician Assistant Medical | DX: M25.572 Pain in left ankle and joints of left foot (principal) ==

== ENCOUNTER → 2025-03-24 | Outpatient (REF) | payer MEDICARE | LOC: M LAB REF 12:50 | PROVIDERS: ATTEND Physician Assistant | DX: J02.9 Acute pharyngitis, unspecified (principal) ==